=== PATIENT | female | born 1955 | race African-American/Black ===

== ENCOUNTER 2021-08-16 16:21 | Inpatient (IN) | payer BC, MEDICAID ==
[~2021-08-16] VITALS: Ht 160 cm; Wt 102.5 kg
[2021-08-16 17:10] LABS: HEMATOCRIT. 30.2 % (36.0-48.0); HEMOGLOBIN. 9.5 g/dL (12.0-16.0); MEAN CORPUSCULAR HEMOGLOBIN 25.4 pg (28.0-32.0); MEAN CORPUSCULAR VOLUME 81.2 fL (81.0-99.0); MEAN PLATELET VOLUME 7.6 fl (7.4-10.4); PLATELET 125 x1000/uL (130-400); RED BLOOD CELL COUNT 3.72 mill/uL (4.2-5.4); RED CELL DISTRIBUTION WIDTH 21.3 % (11.6-14.6)
[2021-08-16 17:13] LABS: CHLORIDE 104 mEq/L (98-107)
[2021-08-16 17:41] LABS: PLATELET ESTIMATE DECREASED
[2021-08-16] MEDS ORDERED: SODIUM CHLORIDE 0.9% 1,000 ML IV ONE (19:00)
[2021-08-16 23:00] VITALS: BP 100/52
[2021-08-16] MEDS ORDERED: DEXTROSE 50% WATER 50ML SYRINGE IV PRN (23:30)
[2021-08-17] MEDS ORDERED: ATOR20TA65 MT (06:53)
[2021-08-17] MEDS ORDERED: FOLI-43 MT (06:53)
[2021-08-17] MEDS ORDERED: OMEP20CA14 MT (06:53)
[2021-08-17] MEDS ORDERED: ATEN-42 MT (06:53)
[2021-08-17] MEDS ORDERED: BIMA2.5D4 OP (06:53)
[2021-08-17] MEDS ORDERED: PRED2.5T4 MT (06:53)
[2021-08-17] MEDS ORDERED: ONDANSETRON HCL 4MG/2ML INJ IV PRN (07:45)
[2021-08-17] MEDS ORDERED: ACETAMINOPHEN 325MG TABLET PO PRN (07:45)
[2021-08-17 08:00] VITALS: BP 92/42
[2021-08-17] MEDS: INSULIN LISPRO 100 UNITS/ML SUBCUT SCH ×4 (08:00→21:38)
[2021-08-17] MEDS: BLOOD SUGAR DIAGNOSTIC STRIP TEST SCH ×4 (08:00→21:19)
[2021-08-17 08:14] LABS: CHLORIDE 110 mEq/L (98-107)
[2021-08-17 08:19] LABS: HEMATOCRIT. 27.8 % (36.0-48.0); MEAN CORPUSCULAR HEMOGLOBIN 25.6 pg (28.0-32.0); MEAN CORPUSCULAR VOLUME 78.8 fL (81.0-99.0); MEAN PLATELET VOLUME 8.8 fl (7.4-10.4); PLATELET 124 x1000/uL (130-400); RED BLOOD CELL COUNT 3.53 mill/uL (4.2-5.4); RED CELL DISTRIBUTION WIDTH 20.8 % (11.6-14.6)
[2021-08-17 08:21] LABS: PHOSPHORUS 3.6 mg/dL (2.5-4.9)
[2021-08-17 08:22] LABS: LDL CHOLESTEROL 70 mg/dL (5-100)
[2021-08-17 08:24] LABS: HDL CHOLESTEROL 48 mg/dL (40-59)
[2021-08-17] MEDS: ATENOLOL 25MG TABLET PO SCH (09:00)
[2021-08-17] MEDS ORDERED: SODIUM BICARBONATE 8.4% 1 MEQ/ML 50ML SYR IV NR (11:00)
[2021-08-17] MEDS: OMEPRAZOLE 20MG CAPSULE EXTENDED RELEASE PO SCH (11:57)
[2021-08-17] MEDS: FOLIC ACID 1MG TABLET PO SCH (11:57)
[2021-08-17] MEDS: ENOXAPARIN 100MG/ML SYR SUBCUT SCH (11:57)
[2021-08-17] MEDS: PREDNISONE 5MG TABLET PO SCH (11:58)
[2021-08-17] MEDS: ATORVASTATIN CALCIUM 20MG TABLET PO SCH (11:58)
[2021-08-17 12:00] VITALS: BP 93/43
[2021-08-17 12:35] LABS: CLARITY URINE TURBID (CLEAR); COLOR URINE YELLOW (YELLOW); KETONES URINE TRACE (NEGATIVE); LEUKOCYTE ESTERASE URINE 3+ (NEGATIVE); NITRITE URINE POSITIVE (NEGATIVE); OCCULT BLOOD URINE 3+ (NEGATIVE); PH URINE 5.5 (4.5-8.0); PROTEIN URINE 2+ (NEGATIVE); SPECIFIC GRAVITY URINE 1.011 (1.005-1.030); UROBILINOGEN URINE 0.2 E.U./dL (0.2-1.0)
[2021-08-17 14:01] LABS: PLATELET ESTIMATE SLIGHTLY DECREASED
[2021-08-17 15:04] LABS: TOTAL IRON BINDING CAPACITY 225 ug/dL (250-450)
[2021-08-17] MEDS ORDERED: SODIUM POLYSTYRENE SULFONATE 15 G/60 ML BOT PO NR (15:30)
[2021-08-17] MEDS: DEXT 5%/0.9% NACL 1,000 ML IV SCH (15:44)
[2021-08-17] MEDS: CEFTRIAXONE 1,000 MG in DEXTROSE 5% WATER 50 ML IV SCH (15:44)
[2021-08-17 16:29] VITALS: BP 96/64
[2021-08-17 20:00] VITALS: BP 92/43
[2021-08-18] VITALS: BP 92/48
[2021-08-18 04:00] VITALS: BP 101/49
[2021-08-18 05:37] LABS: HEMATOCRIT. 26.6 % (36.0-48.0); HEMOGLOBIN. 8.8 g/dL (12.0-16.0); MEAN CORPUSCULAR HEMOGLOBIN 25.6 pg (28.0-32.0); MEAN CORPUSCULAR VOLUME 77.4 fL (81.0-99.0); MEAN PLATELET VOLUME 8.8 fl (7.4-10.4); PLATELET 141 x1000/uL (130-400); RED BLOOD CELL COUNT 3.44 mill/uL (4.2-5.4); RED CELL DISTRIBUTION WIDTH 21.4 % (11.6-14.6)
[2021-08-18 05:57] LABS: INR 1.3; PROTHROMBIN TIME 13.8 sec (9.6-11.0)
[2021-08-18] MEDS: DEXT 5%/0.9% NACL 1,000 ML IV SCH (06:15)
[2021-08-18] MEDS: OMEPRAZOLE 20MG CAPSULE EXTENDED RELEASE PO SCH (06:30)
[2021-08-18] MEDS: BLOOD SUGAR DIAGNOSTIC STRIP TEST SCH ×4 (06:30→20:42)
[2021-08-18] MEDS: INSULIN LISPRO 100 UNITS/ML SUBCUT SCH ×4 (07:50→20:45)
[2021-08-18 08:00] VITALS: BP 95/50
[2021-08-18] MEDS: ATENOLOL 25MG TABLET PO SCH (09:00)
[2021-08-18] MEDS: ATORVASTATIN CALCIUM 20MG TABLET PO SCH (09:34)
[2021-08-18] MEDS: PREDNISONE 5MG TABLET PO SCH (09:34)
[2021-08-18] MEDS: FOLIC ACID 1MG TABLET PO SCH (09:35)
[2021-08-18 12:10] VITALS: BP 100/57
[2021-08-18] MEDS: CITRIC ACID/SODIUM CITRATE SOLN 15ML UDC PO SCH ×2 (13:00→18:24)
[2021-08-18] MEDS: ENOXAPARIN 100MG/ML SYR SUBCUT SCH (13:36)
[2021-08-18 14:19] LABS: PLATELET ESTIMATE NORMAL
[2021-08-18 16:00] VITALS: BP 111/60
[2021-08-18] MEDS: CEFTRIAXONE 1,000 MG in DEXTROSE 5% WATER 50 ML IV SCH (17:15)
[2021-08-18 20:00] VITALS: BP 90/40
[2021-08-19] VITALS: BP 101/55
[2021-08-19 04:56] LABS: HEMATOCRIT. 24.9 % (36.0-48.0); HEMOGLOBIN. 8.3 g/dL (12.0-16.0); MEAN CORPUSCULAR HEMOGLOBIN 25.7 pg (28.0-32.0); MEAN CORPUSCULAR VOLUME 76.7 fL (81.0-99.0); MEAN PLATELET VOLUME 8.8 fl (7.4-10.4); PLATELET 165 x1000/uL (130-400); RED BLOOD CELL COUNT 3.25 mill/uL (4.2-5.4); RED CELL DISTRIBUTION WIDTH 20.2 % (11.6-14.6)
[2021-08-19] MEDS: DEXT 5%/0.9% NACL 1,000 ML IV SCH ×2 (05:53→15:28)
[2021-08-19] MEDS: BLOOD SUGAR DIAGNOSTIC STRIP TEST SCH ×2 (07:20→12:35)
[2021-08-19] MEDS: INSULIN LISPRO 100 UNITS/ML SUBCUT SCH ×2 (07:50→12:36)
[2021-08-19 08:00] VITALS: BP 95/51
[2021-08-19] MEDS ORDERED: FAMOTIDINE 20MG TABLET PO SCH (09:00)
[2021-08-19] MEDS: FOLIC ACID 1MG TABLET PO SCH (09:21)
[2021-08-19] MEDS: PREDNISONE 5MG TABLET PO SCH (09:21)
[2021-08-19] MEDS: CITRIC ACID/SODIUM CITRATE SOLN 15ML UDC PO SCH ×2 (09:21→13:01)
[2021-08-19] MEDS: ATORVASTATIN CALCIUM 20MG TABLET PO SCH (09:22)
[2021-08-19 12:00] VITALS: BP 105/56
[2021-08-19] MEDS: ENOXAPARIN 100MG/ML SYR SUBCUT SCH (12:19)
[2021-08-19] MEDS ORDERED: IPRATROPIUM/ALBUTEROL 0.5-3(2.5)MG/3ML NEB HHN PRN (14:00)
[2021-08-19 14:50] LABS: BG BASE EXCESS -7.3 mmol/L (-2.0-2.0); BG CARBOXYHEMOGLOBIN 0.6 % (0.5-1.5); BG DEOXYHEMOGLOBIN 4.4 % (0.0-5.0); BG FRACTION INSPIRED OXYGEN 21; BG HCO3 ACT 17.6 mmol/L (22.0-26.0); BG OXYGEN SATURATION 95.6 % (92.0-98.5); BG PCO2 33.1 mmHg (35.0-45.0); BG PH 7.344 (7.350-7.450); BG PO2 85.7 mmHg (75.0-100.0); BG SAMPLE SITE RIGHT RADIAL; BG TOTAL HEMOGLOBIN 8.8 g/dL (12.0-18.0); BG VENT MODE ROOM AIR
[2021-08-19] MEDS: CEFTRIAXONE 1,000 MG in DEXTROSE 5% WATER 50 ML IV SCH (15:27)
[2021-08-19 16:00] VITALS: BP 100/48
[2021-08-19 16:26] VITALS: BP 95/51
[2021-08-19 16:57] LABS: PLATELET ESTIMATE NORMAL
== END 2021-08-19 18:06 | disposition home or self-care (01) | DRG 871 ==
LOC: ER 16:21 → 6EST 20:14 → ENRESERV 21:22
PROVIDERS: ADMIT Internal Medicine; ATTEND Internal Medicine
DX: A41.50 Gram-negative sepsis, unspecified (principal); J96.01 Acute respiratory failure with hypoxia; N17.0 Acute kidney failure with tubular necrosis; E87.1 Hypo-osmolality and hyponatremia; I82.411 Acute embolism and thrombosis of right femoral vein; E87.2 Acidosis; N13.6 Pyonephrosis; I82.431 Acute embolism and thrombosis of right popliteal vein; Z68.41 Body mass index [BMI] 40.0-44.9, adult; D64.9 Anemia, unspecified; E11.9 Type 2 diabetes mellitus without complications; E87.5 Hyperkalemia; E66.9 Obesity, unspecified; Z20.822 Contact with and (suspected) exposure to COVID-19; D50.9 Iron deficiency anemia, unspecified; D69.6 Thrombocytopenia, unspecified; E78.00 Pure hypercholesterolemia, unspecified; E78.5 Hyperlipidemia, unspecified; Z96.659 Presence of unspecified artificial knee joint; I10 Essential (primary) hypertension; M19.90 Unspecified osteoarthritis, unspecified site; Z86.73 Personal history of transient ischemic attack (TIA), and cerebral infarction without residual deficits; Z79.899 Other long term (current) drug therapy; Z87.11 Personal history of peptic ulcer disease; Z87.891 Personal history of nicotine dependence
CPT/HCPCS: 36415; 36600; 71045; 76770; 78582; 80048; 80053; 80061; 81003; 82375; 82728; 82805; 82962; 83036; 83540; 83550; 83605; 83880; 84100; 84484; 85025; 85379; 85651; 86038; 87077; 87186; 87426; 93005; 93970; 97161; 99285; A9558; J0696; J1650; J1815; J3490; J7030; J7042; J7060; J7512

== ENCOUNTER 2021-09-17 14:57 | Emergency (ER) | payer BC, MEDICAID ==
[~2021-09-17] VITALS: Ht 165.1 cm; Wt 100.0 kg
[~2021-09-17 14:57] MED LIST: ATEN-42 MT; ATOR20TA65 MT; BIMA2.5D4 OP; EPINEPHRINE 0.1MG/ML (1:10,000) 10ML SYR ONE; ETOMIDATE 2MG/ML 10ML VIAL IV ONE; FOLI-43 MT; OMEP20CA14 MT; PRED2.5T4 MT; SODIUM CHLORIDE 0.9% 10ML VIAL ONE; VECURONIUM BROMIDE 10 MG/VIAL IV ONE
[2021-09-17 15:51] LABS: EOSINOPHILS % 0.6 % (0.0-5.0); HEMATOCRIT. 24.9 % (36.0-48.0); LYMPHOCYTES % 7.4 % (20.0-50.0); MEAN CORPUSCULAR HEMOGLOBIN 26.7 pg (28.0-32.0); MEAN CORPUSCULAR VOLUME 83.7 fL (81.0-99.0); MONOCYTES % 3.8 % (2.0-8.0); NEUTROPHILS % 87.2 % (40.0-76.0); PLATELET 121 x1000/uL (130-400); RED BLOOD CELL COUNT 2.98 mill/uL (4.2-5.4); RED CELL DISTRIBUTION WIDTH 23.3 % (11.6-14.6)
[2021-09-17 15:53] LABS: CHLORIDE 102 mEq/L (98-107)
[2021-09-17 15:57] LABS: ETHANOL BLOOD < 10 mg/dL
[2021-09-17 16:00] LABS: LDL CHOLESTEROL 82 mg/dL (5-100)
[2021-09-17] MEDS ORDERED: LACTATED RINGERS 500 ML IV STA (16:32)
[2021-09-17 16:40] LABS: PLATELET ESTIMATE SLIGHTLY DECREASED
[2021-09-17 16:42] LABS: CREATINE KINASE 185 IU/L (26-192)
[2021-09-17] MEDS ORDERED: CALCIUM CHLORIDE 1GM/10ML SYR IV ONE ×2 (16:45→16:58)
[2021-09-17] MEDS ORDERED: DEXTROSE 50% WATER 50ML SYRINGE IV ONE (16:45)
[2021-09-17] MEDS ORDERED: ALBUTEROL (0.083%) 2.5MG/3ML NEB HHN ONE (16:45)
[2021-09-17] MEDS ORDERED: INSULIN REGULAR (HUMULIN R) 300UNITS/3ML VIAL IV ONE (16:45)
[2021-09-17 17:11] LABS: INR 1.8; PROTHROMBIN TIME 18.3 sec (9.6-11.0)
[2021-09-17] MEDS ORDERED: HEPARIN 25,000 UNITS PREMIX 250 ML IV PRN (17:15)
[2021-09-17] MEDS ORDERED: HEPARIN 5000 UNITS/ML VIAL IV PRN ×2 (17:15)
[2021-09-17] MEDS ORDERED: HEPARIN 5000 UNITS/ML VIAL IV SCH (17:15)
[2021-09-17] MEDS ORDERED: IOHEXOL-350 100 ML BOTTLE ONE (17:23)
[2021-09-17 17:31] LABS: CLARITY URINE CLOUDY (CLEAR); COLOR URINE YELLOW (YELLOW); KETONES URINE 2+ (NEGATIVE); LEUKOCYTE ESTERASE URINE 3+ (NEGATIVE); NITRITE URINE POSITIVE (NEGATIVE); OCCULT BLOOD URINE 3+ (NEGATIVE); PH URINE 5.5 (4.5-8.0); PROTEIN URINE 2+ (NEGATIVE); SPECIFIC GRAVITY URINE 1.028 (1.005-1.030); UROBILINOGEN URINE 0.2 E.U./dL (0.2-1.0)
[2021-09-17 17:41] LABS: *BENZODIAZEPINES SCREEN URINE NEGATIVE (NEGATIVE)
[2021-09-17 17:42] LABS: *BARBITURATES SCREEN URINE NEGATIVE (NEGATIVE); *COCAINE SCREEN URINE NEGATIVE (NEGATIVE); CANNABINOID URINE SCREEN NEGATIVE (NEGATIVE); OPIATES URINE SCREEN NEGATIVE (NEGATIVE); PHENCYCLIDINE URINE SCREEN NEGATIVE (NEGATIVE)
[2021-09-17 17:43] LABS: *AMPHETAMINES SCREEN URINE NEGATIVE (NEGATIVE); METHADONE URINE SCREEN NEGATIVE (NEGATIVE)
[2021-09-17] MEDS ORDERED: HEPARIN 60 UNITS/KG BOLUS IV SCH (18:00)
[2021-09-17] MEDS ORDERED: HEPARIN BOLUS PRN aPTT <30 IV (18:00)
[2021-09-17] MEDS ORDERED: HEPARIN BOLUS PRN aPTT 30-44 IV (18:00)
[2021-09-17] MEDS ORDERED: HEPARIN 25,000 UNITS PREMIX 250 ML IV SCH (18:00)
[2021-09-17] MEDS ORDERED: PIPERACILLIN/TAZ 3.375G PREMIX 50 ML IV ONE (18:15)
[2021-09-17] MEDS ORDERED: VANCOMYCIN 1 G PREMIX 200 ML IV ONE (18:15)
[2021-09-17] MEDS ORDERED: NOREPINEPHRINE 8 MG in DEXT 5% WATER 242 ML IV STA ×2 (20:00→20:05)
[2021-09-17] MEDS ORDERED: MIDAZOLAM HCL 100 MG in DEXT 5% WATER 80 ML IV ONE (21:00)
[2021-09-17] MEDS ORDERED: ETOMIDATE 2MG/ML 10ML VIAL IV ONE (21:00)
[2021-09-17] MEDS ORDERED: ROCURONIUM BROMIDE 10MG/ML VIAL 5ML IV ONE (21:00)
[2021-09-17] MEDS ORDERED: MIDAZOLAM HCL 100 MG in SODIUM CHLORIDE 0.9% 80 ML IV ONE (21:30)
[2021-09-17] MEDS ORDERED: AMIODARONE HCL 900 MG in DEXT 5% WATER 482 ML IV STA ×2 (23:33→23:43)
[2021-09-17] MEDS ORDERED: AMIODARONE HCL 150 MG in DEXT 5% WATER 100 ML IV ONE (23:45)
[2021-09-18] MEDS ORDERED: SODIUM BICARBONATE 150 MEQ in DEXTROSE 5% WATER 1,000 ML IV SCH (00:15)
[2021-09-18] MEDS ORDERED: VASOPRESSIN 20 UNIT in SODIUM CHLORIDE 0.9% 99 ML IV STA (00:18)
[2021-09-18 00:30] VITALS: BP 55/33
[2021-09-18] MEDS ORDERED: VASOPRESSIN 20 UNIT in SODIUM CHLORIDE 0.9% 99 ML IV SCH (01:00)
[2021-09-18 01:26] LABS: CHLORIDE 102 mEq/L (98-107)
[2021-09-18] MEDS ORDERED: EPINEPHRINE 0.1MG/ML (1:10,000) 10ML SYR ONE (08:29)
[2021-09-18] MEDS ORDERED: CALCIUM CHLORIDE 1GM/10ML SYR IV ONE (08:29)
[2021-09-18] MEDS ORDERED: SODIUM BICARBONATE 8.4% 1 MEQ/ML 50ML SYR IV ONE (08:29)
[2021-09-18] MEDS ORDERED: LIDOCAINE HCL 2% 5ML SYRINGE IV ONE (08:29)
[2021-09-18] MEDS ORDERED: ATROPINE SULFATE 1MG/10ML SYR ONE (08:29)
== END 2021-09-18 03:41 ==
LOC: ER 14:57 → EDBEDREQTM 20:05 → EDBEDREQSVC 20:05 → EDBEDREQ 20:05 → CANRESERV 23:40 → ENRESERV 23:40 → ER 09-18 03:41 → CANBEDREQ 09-18 08:24
DX: A41.9 Sepsis, unspecified organism (principal); R65.21 Severe sepsis with septic shock; I21.4 Non-ST elevation (NSTEMI) myocardial infarction; J96.00 Acute respiratory failure, unspecified whether with hypoxia or hypercapnia; G93.49 Other encephalopathy; I46.9 Cardiac arrest, cause unspecified; E87.5 Hyperkalemia; E87.2 Acidosis; E11.9 Type 2 diabetes mellitus without complications; I10 Essential (primary) hypertension; E78.00 Pure hypercholesterolemia, unspecified; Z20.822 Contact with and (suspected) exposure to COVID-19; Z86.718 Personal history of other venous thrombosis and embolism; Z79.01 Long term (current) use of anticoagulants; Z86.73 Personal history of transient ischemic attack (TIA), and cerebral infarction without residual deficits
CPT/HCPCS: 31500; 36415; 36556; 70450; 70496; 70498; 71045; 80048; 80053; 80305; 80307; 80320; 80329; 81003; 82550; 82962; 83605; 83721; 83880; 84484; 85025; 85610; 85730; 87086; 87426; 94002; 94640; 96361; 96365; 96367; 96368; 96375; 99291; J0282; J0461; J1644; J1815; J2250; J2543; J3370; J3490; J7050; J7060; J7070; J7120; Q9967; G0480